=== PATIENT | male | born 1945 | race Caucasian/White ===

== ENCOUNTER → 2017-12-05 | Day surgery (SDC) | payer MEDICARE, BC ==
[~2017-12-05] MED LIST: GENTAMICIN SULFATE 80 MG/2 ML VIAL ONE; LACTATED RINGER'S 1000 ML INJ 1,000 ML ONE; MIDAZOLAM HCL 2 MG/2 ML VIAL ONE; ONDANSETRON HCL 4 MG/2 ML VIAL IV PUSH ONE; PROPOFOL 200 MG/20 ML AMP IV ONE; SODIUM CHLORIDE 0.9% 100 ML BAG IV ONE
--- NOTE | 2017-12-05 13:51 | TN ---
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 POSTOPERATIVE DIAGNOSIS: Large bladder neck tumor ( ICD-10 code of D41.4). PROCEDURE PERFORMED: Transurethral resection of bladder tumor (TURBT) (CPT code 80185). INDICATIONS: Mr. Natarajan is a 72-year-old gentleman who, as part of his evaluation for gross painless hematuria, was found to have an approximately 2-3 cm tumor at the bladder neck. He presents now for resection of this. FINDINGS: Normal anterior and posterior urethra. 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 The bladder neck shows a very large papillary tumor at essentially the 12 o'clock position obstructing the entire bladder outlet due to its overwhelming size. This appears to be just a papillary lesion with somewhat of a narrowed stalk, but difficult to completely ascertain. There were no additional tumors throughout the bladder. The trigone shows ureteral orifices normal size, shape and position, effluxing clear urine. There are some mild trabeculations but no additional tumors, abnormal mucosa or diverticula. DESCRIPTION OF PROCEDURE: The procedure as well as risks and benefits were explained to the patient, informed consent was obtained. The patient was taken to the major operative theater where he was placed in supine position. The patient was identified as well as the operative side. A universal timeout was performed in standard fashion. At this time, general anesthetic and prophylactic intravenous antibiotics consisting of gentamicin 80 mg was administered. After adequate anesthetic, he was placed in the low dorsal lithotomy position, prepped and draped in the usual sterile fashion. At this time, the urethra was calibrated using Nuria sounds from 16-Monegasque to 28-Monegasque. At this time, a 22.5-Monegasque cystoscope with a 30-degree lens was inserted into the urethra and the bladder. The 30-degree lens was exchanged for the 70-degree lens. The entire bladder was systematically surveyed with the above findings. At this time, the cystoscope was removed and a 27-Monegasque Miguel resectoscope with a right angle bladder loop, using the Gyrus system and normal saline, transurethral resection of the bladder neck tumor was performed until the entire tumor was resected completely. The specimen was then irrigated out and sent for final pathological evaluation. The cystoscope was then placed back into the bladder and using a 70-degree lens, the area of resection was confirmed that there was no additional tumor or active bleeding. At this time, the bladder was decompressed, the cystoscope removed. The patient tolerated the procedure well, emerged from anesthetic without difficulty and transferred to the recovery room in stable condition to be discharged home when criteria was met. There were no obvious complications. MD ANTHONY Lucas/ATUL , 01:32 PM , 01:50 PM
== END | disposition home or self-care (01) ==
LOC: ESDC 10:22
PROVIDERS: ATTEND Urology
DX: C67.5 Malignant neoplasm of bladder neck (principal)
CPT/HCPCS: 00912; 52235; 88307; J1580; J2250; J2405; J3010; J7120